=== PATIENT | female | born 1960 | race Caucasian/White ===

== ENCOUNTER 2018-04-03 16:47 | Outpatient (CLI) | payer OTHER, SELFPAY ==
[2018-04-03 20:35] LABS: ALT 43 U/L (12-78); AST 26 U/L (15-37); Albumin 3.9 g/dL (3.4-5.0); Alkaline Phosphatase 93 U/L (46-116); Anion Gap 8.7 mmol/L (3-11); BUN 17 mg/dL (7-18); Bilirubin, Total 0.6 mg/dL (0.2-1.0); CO2 29.3 mmol/L (21.0-32.0); CREATININE 1.11 mg/dL (0.55-1.02); Calcium 9.6 mg/dL (8.5-10.1); Chloride 102 mmol/L (98-107); Estimated GFR 50.14 (mL/min/1.73m2); Glucose 91 mg/dL (70-100); Sodium 140 mmol/L (136-145); TSH (W/Ref FT4) 0.12 uIU/mL (0.358-3.74); Total Protein 7.4 g/dL (6.4-8.2)
[2018-04-03 21:10] LABS: FREE T4 1.52 ng/dL (0.76-1.46)
== END 2018-04-03 17:07 ==
PROVIDERS: PCP Family Medicine; Visit Provider Family Medicine
DX: E03.9 Hypothyroidism, unspecified (principal)
CPT/HCPCS: 36415; 80053; 84439; 84443

== ENCOUNTER 2018-06-06 15:21 | Outpatient (CLI) | payer OTHER, SELFPAY ==
[2018-06-06 15:48] LABS: Abs Immature Grans 0.01 k/cumm (0.0-0.09); Absolute Basophil Count 0.02 k/cumm (0.0-0.2); Absolute Eosinophil Count 0.12 k/cumm (0.0-0.7); Absolute Lymphocyte Count 1.57 k/cumm (1.2-3.4); Absolute Monocyte Count 0.49 k/cumm (0.11-0.7); Absolute Neutrophil Count 3.97 k/cumm (1.2-6.7); Basophils % 0.3; Eosinophils % 1.9; HCT 38.5 % (36.0-46.0); HGB 12.8 g/dL (12.0-15.5); Immature Grans % 0.2; Lymphocytes % 25.4; Mean Corp. HGB Concentration 33.2 g/dL (32.0-36.0); Mean Corpuscular Hemoglobin 28.5 pg (27.0-33.0); Mean Corpuscular Volume 85.7 fL (80-95); Mean Platelet Volume 9.1 fL (8.0-11.0); Monocytes % 7.9; Neutrophils % 64.3; Platelet Count 248 x1000/uL (130-400); RBC 4.49 m/cumm (4.00-5.20); RBC Distribution Width 12.9 % (11.7-14.6); White Blood Cell Count 6.18 k/cumm (4.4-10.8)
[2018-06-06 17:54] LABS: ALT 33 U/L (12-78); AST 26 U/L (15-37); Albumin 3.7 g/dL (3.4-5.0); Alkaline Phosphatase 101 U/L (46-116); Anion Gap 7.7 mmol/L (3-11); BUN 17 mg/dL (7-18); Bilirubin, Total 0.6 mg/dL (0.2-1.0); CO2 29.3 mmol/L (21.0-32.0); CREATININE 1.17 mg/dL (0.55-1.02); Calcium 9.6 mg/dL (8.5-10.1); Chloride 102 mmol/L (98-107); Estimated GFR 47.18 (mL/min/1.73m2); Glucose 93 mg/dL (70-100); Potassium 3.9 mmol/L (3.5-5.1); Sodium 139 mmol/L (136-145); TSH (W/Ref FT4) 0.47 uIU/mL (0.358-3.74); Total Protein 7.3 g/dL (6.4-8.2)
== END 2018-06-06 15:41 ==
PROVIDERS: PCP Family Medicine
DX: C20 Malignant neoplasm of rectum (principal); E03.9 Hypothyroidism, unspecified; R10.9 Unspecified abdominal pain
CPT/HCPCS: 36415; 80053; 84443; 85025

== ENCOUNTER 2019-06-20 02:42 | Outpatient (CLI) | payer OTHER, SELFPAY ==
--- NOTE | 2019-06-20 10:30 | DI.MAMMO_ITS ---
EXAM: MAMMO SCREENING CLINICAL HISTORY: screening TECHNIQUE: Mammograms were interpreted according to the usual protocol including computer analysis w [employer] CAD system, tomosynthesis and C-view imaging. COMPARISON: 2009 through 2016 FINDINGS: The breasts are composed of scattered fibroglandular densities, Breast Density category B. No suspicious masses or suspicious microcalcifications are seen. No skin thickening or abnormal axillary lymph nodes are seen. There has been no significant change from prior exams. IMPRESSION: BIRADS Category 1, negative mammogram. Yearly screening mammography is recommended.
[2019-06-20 11:14] LABS: ALT 16 U/L (14-59); AST 12 U/L (15-37); Albumin 3.5 g/dL (3.4-5.0); Alkaline Phosphatase 97 U/L (46-116); Anion Gap 9.6 mmol/L (3-11); BUN 23 mg/dL (7-18); Bilirubin, Total 0.6 mg/dL (0.2-1.0); CO2 29.4 mmol/L (21.0-32.0); CREATININE 1.22 mg/dL (0.55-1.02); Calcium 9.1 mg/dL (8.5-10.1); Calculated LDL 106 mg/dL (<100); Chloride 103 mmol/L (98-107); Cholesterol 221 mg/dL (<200); Estimated GFR 44.81 (mL/min/1.73m2); Glucose 96 mg/dL (74-106); HDL Cholesterol 66 mg/dL (40-60); Potassium 3.6 mmol/L (3.5-5.1); Sodium 142 mmol/L (136-145); TSH (W/Ref FT4) 0.43 uIU/mL (0.36-3.74); Total Protein 6.8 g/dL (6.4-8.2); Triglyceride 249 mg/dL (<150)
== END 2019-06-20 03:02 ==
PROVIDERS: PCP Family Medicine; Visit Provider Family Medicine
DX: Z00.00 Encounter for general adult medical examination without abnormal findings (principal); Z12.31 Encounter for screening mammogram for malignant neoplasm of breast; E03.9 Hypothyroidism, unspecified; R05 Cough
CPT/HCPCS: 36415; 77063; 77067; 80053; 80061; 84443

== ENCOUNTER 2020-09-03 02:17 | Outpatient (CLI) | payer OTHER, SELFPAY ==
[2020-09-03 08:53] LABS: ALT 31 U/L (14-59); AST 20 U/L (15-37); Albumin 3.6 g/dL (3.4-5.0); Alkaline Phosphatase 84 U/L (46-116); Anion Gap 6.6 mmol/L (3-11); BUN 19 mg/dL (7-18); Bilirubin, Total 0.6 mg/dL (0.2-1.0); CO2 29.4 mmol/L (21.0-32.0); CREATININE 1.2 mg/dL (0.55-1.02); Calcium 8.8 mg/dL (8.5-10.1); Calculated LDL 115 mg/dL (<100); Chloride 105 mmol/L (98-107); Cholesterol 195 mg/dL (<200); Estimated GFR 45.52 (mL/min/1.73m2); Glucose 94 mg/dL (74-106); HDL Cholesterol 55 mg/dL (40-60); Potassium 4.4 mmol/L (3.5-5.1); Sodium 141 mmol/L (136-145); TSH (W/Ref FT4) 0.34 uIU/mL (0.36-3.74); Total Protein 6.9 g/dL (6.4-8.2); Triglyceride 128 mg/dL (<150)
[2020-09-03 09:09] LABS: FREE T4 1.31 ng/dL (0.76-1.46)
== END 2020-09-03 02:18 | disposition home or self-care (01) ==
LOC: LBO 02:17
PROVIDERS: PCP Family Medicine; Visit Provider Family Medicine
DX: Z00.00 Encounter for general adult medical examination without abnormal findings (principal); Z13.220 Encounter for screening for lipoid disorders; Z13.29 Encounter for screening for other suspected endocrine disorder
CPT/HCPCS: 36415; 80053; 80061; 84439; 84443

== ENCOUNTER 2020-09-08 14:43 | Outpatient (REF) | payer OTHER, SELFPAY ==
--- NOTE | 2020-09-08 13:15 | PAPFT_PTH ---
PATIENT: Crista Fontenot LOC: [facility] U#:[id number] AGE/SX: 60/F ROOM: RE09/08/[address]: Renea King MD, DC : 1960 BED: DIS: 09/08/2020 SPEC #: [id number] RECD: 09/09/20 12:55 STATUS: GAURAV REHedy #: [id number] JOSE MIGUEL: 09/08/20 13:[address]: Renea King DEPT: FORMERLY [facility], [facility]–1983 Cytology RECD BY: Silvia Perkins Tissues: 1 - CX/ENDOCX FOR PAP SMEARS Procedures: PAP THIN PREP/UVM Screening HPV DNA PROBE Comments: [id number]
--- OUTSIDE RECORDS SUMMARY | 2020-09-08 14:49 | XMS_ITS | Continuity of Care Document ---
:1960 Author Organization [facility] Address [address] [place] [address] Care Team Providers Name Role Phone Joanna King Primary Care Physician Unavailable Anamaria Miller Attending Physician Unavailable Allergies, Adverse Reactions, Alerts Allergen Type Severity Reaction Last Updated Verified Status latex Allergy rash January 16 Active 2016 levothyroxine Allergy face swelling January 16 Active 2017 Sulfa (Sulfonamide Allergy rash January 16 Active Antibiotics) 2017 Medications Active Medications Medication Dose Units Route Sig Start Date Status Aspirin 81 MG ORAL DAILY January 16, 2017 A ctive Calcium Carbonate [Calcium 600] 1 TAB ORAL DAILY January 16, 2017 Active Levothyroxine [Synthroid] 112 MCG ORAL DAILY Dec Active Cholecalciferol (Vitamin D3) 5000 UNITS ORAL DAILY S epte2016 Active [Vitamin D3] Problem List No problem information available. Procedures Procedure Date Status Sacrum and Coccyx 2 vw Min June 14, [address] Chest Abd Pel w/ Contrast January 26, 2017 completed COLONOSCOPY AND BIOPSY January 16, 2017 active US Abdomen (Limited) December 28, 2016 completed Relevant Diagnostic Tests and/or Laboratory Data Laboratory Results Test Date/Time Result Interp. Ref. Range Result Comment White Blood Count January 19, 7.47 4.8-10.8 2016 5:54pm 1000/mm3 Red Blood Count January 19, 4.56 M/mm3 4.20-5.40 2016 5:54pm Hemoglobin January 19, 13.0 g/dL 12.0-16.0 2016 5:54pm Hematocrit January 19, 38.9 % 37-47 2017 5:54pm Mean Corpuscular January 19, 85.3 fL 81.0-99.0 Volume 2017 5:54pm Mean Corpuscular January 19, 28.5 pg 27-31 Hemoglobin 2017 5:54pm Mean Corpuscular January 19, 33.4 g/dL 33-37 Hemoglobin Concent 2017 5:54pm Red Cell Distribution January 19, 13.1 % 11.5-14.5 Width 2017 5:54pm Platelet Count January 19, 316 089-238 3989 5:54pm 1000/mm3 Mean Platelet Volume January 19, 9.2 fL 7.4-10.4 2017 5:54pm Sodium Level January 19, 138 mmol/L 899-554 1766 5:54pm Potassium Level January 19, 3.8 mmol/L 3.6-5.0 2016 5:54pm Chloride Level January 19, 101 mmol/L 98-107 2016 5:54pm Carbon Dioxide Level January 19, 24 mmol/L -2016 5:54pm Anion Gap January 19, 13 7-16 2016 5:54pm Blood Urea Nitrogen January 19, 14 mg/dL -2016 5:54pm Creatinine January 19, 1.0 mg/dL 0.52-1.04 2016 5:54pm Glomerular Filtration January 19, 57 mL/min Rate Calc 2016 5:54pm Glucose Level January 19, 97 mg/dL 70-100 2016 5:54pm Calcium Level January 19, 9.8 mg/dL 8.4-10.2 2016 5:54pm Calcium Adjusted for January 19, 9.8 mg/dL 8.4-10.2 Albumin 2016 5:54pm Total Bilirubin January 19, 0.8 mg/dL 0.2-1.3 2016 5:54pm Direct Bilirubin January 16, 0.0 mg/dL 0-0.3 2017 9:45am Aspartate Amino January 19, 24 U/L 14-36 Transf (AST/SGOT) 2016 5:54pm Alanine January 19, 33 U/L 9-52 Aminotransferase 2016 5:54pm (ALT/SGPT) Total Protein January 19, 7.3 g/dL 6.3-8.2 2016 5:54pm Albumin January 19, 4.3 g/dL 3.5-5.0 2017 5:54pm Alkaline Phosphatase January 19, 86 U/L 38-126 2016 5:54pm Carcinoembryonic January 16, 0.7 ng/mL % Di stribution of CEA (ng/ml) Antigen 2016 9:45am 0-2.5 in 98. 2% of non-smokers and 87.3% of smokers 2.6-5.0 in 1. 8% of non-smokers and 8.0% of smokers 5.1-10.1 in 4 .7% of smokers Serum CEA con centration should not be interpreted as absolute e vidence for the presence or absence of malignant disease. Assayed utili Pipedriveng App[employer]Rx (Traackr) chemiluminesc ent technology. Values obtained by u sing different assay methods cannot be use d interchangeably. Test Performed by: [place] [address] Licensed Clinical Social Worker: Jan Buckley MD , Ph D Advance Directives Advance Directive Response Recorded Date/Time Do we have a copy [place] file here [place] [facility] No S eptember 2016 8:48am Does patient have an Advanced Directive? Yes December 28, 2016 8:48am Pt has a Living Will? Yes December 28, 2016 8:48am Pt has a Power of Income Tax Investigator? Yes December 28, 2016 8:48am Chief Complaint and Reason for Visit Encounter Admit Date Chief Complaint Reason for Visit Departed Clinical June 14, 2017 4:48pm XR Hospital Discharge Instructions No known hospital discharge instructions. Hospital Discharge Medications Medication Dose Units Route Sig Qty Days Order Date Status In structions Aspirin 81 MG ORAL DAILY January 162016 Calcium Carbonate 1 TAB ORAL DAILY January 162016 Levothyroxine 112 MCG ORAL DAILY January 16, Act andrés 2016 Cholecalciferol 5000 UNITS ORAL DAILY January 16, A ctive (Vitamin D3) 2016 Encounters Encounter Facility Location Admit/Visit Discharge/Departure Atte nding Date Date Provider Departed [facility] June 14June 14, 2017 Ian prakash [facility] 2017 4:48pm 4:49pm Yuri [facility] January 26January 26, 2017 Chet [facility] 2016 8:37am 8:38am [facility] Laboratory January 19January 19, 2017 Felisa jhaveri [facility] 2016 5:48pm 5:49pm [facility] January 16January 16, 2017 Felisa jhaveri [facility] 2016 7:24am 10:15am [facility] December 28December 28, 2016 Franky moreno [facility] 2016 8:43am 8:44am [facility] Functional Status No known functional status. Immunizations No known immunizations. Payers Payer Policy Type Covered Covered Relationship Subscriber Subs criber Id Name Green Party Green Party Id [employer] Commercial JEREMIAS [id number] Spouse JEREMIAS PANG [id number] POLY SCOTT (DO Commercial JOEL [id number] Self/Same as JOEL [id number] NOT USE) POLY Patient POLY SELF PAY Personal Plan of Care No Known Plan of Care Information Social History Query Response Start Date Stop Date Smoking Status Never smoker Vital Signs Vital Reading Result Reference Range Collection Date/ Time Height n/a Weight n/a Temperature 98.8 F 97.6 F-99.6 F January 16 7:53am Pulse 67 BPM 60-100 January 16 10:14am Respiration 16 RPM -January 16 10:14am Pulse Oximetry 97 % 95-100 January 16 10:14am Blood Pressure Systolic 137 100-140 [facility] 2016 10:14am Blood Pressure Diastolic 77 50-85 [facility] 2016 10:14am Body Mass Index n/a
--- OUTSIDE RECORDS SUMMARY | 2020-09-08 14:49 | XMS_ITS | Continuity of Care Document ---
:1960 Author Organization [facility] Address [address] [place] [address] Care Team Providers Name Role Phone Joanna King Primary Care Physician Unavailable Ron Rosenberg Attending Physician Allergies, Adverse Reactions, Alerts Allergen Type Severity Reaction Last Updated Verified Status latex Allergy rash January 16 Active 2016 levothyroxine Allergy face swelling January 16 Active 2017 Sulfa (Sulfonamide Allergy rash January 16 Active Antibiotics) 2016 Medications Active Medications Medication Dose Units Route Sig Start Date Status Aspirin 81 mg ORAL DAILY January 16, 2017 A ctive Calcium Carbonate [Calcium 600] 1 tab ORAL DAILY January 16, 2017 Active Levothyroxine [Synthroid] 112 mcg ORAL DAILY Dec Active Cholecalciferol (Vitamin D3) 5000 units ORAL DAILY S epte2016 Active [Vitamin D3] Problem List No problem information available. Procedures Procedure Date Status Provider(s) Colonoscopy with biopsy January 16, 2017 completed Apolinar Rosenberg US Abdomen (Limited) December 28, 2016 completed Relevant Diagnostic Tests and/or Laboratory Data Laboratory Results Test Date/Time Result Interp. Ref. Range Result Comment Total Bilirubin January 16, 1.0 mg/dL 0.2-1.3 2016 9:45am Direct Bilirubin January 16, 0.0 mg/dL 0-0.3 2016 9:45am Aspartate Amino Transf January 16 U/L 14-36 (AST/SGOT) 2016 9:45am Alanine Aminotransferase January 16 36 U/L 9-52 (ALT/SGPT) 2016 9:45am Total Protein January 16, 6.5 g/dL 6.3-8.2 2016 9:45am Albumin January 16, 3.9 g/dL 3.5-5.0 2016 9:45am Alkaline Phosphatase January 16 83 U/L 38-126 2016 9:45am Advance Directives Advance Directive Response Recorded Date/Time Do we have a copy on file here [facility] 8[facility] Does patient have an Advanced Directive? Yes December 28, 2016 8:48am Pt has a Living Will? Yes December 28, 2016 8:48am Pt has a Power of Carbon Sequestration Plant Engineer? Yes December 28, 2016 8:48am Chief Complaint and Reason for Visit Encounter Admit Date Chief Complaint Reason for Visit Departed Surgical Day January 16, 2017 Other fecal abnormaliti es Care 7:24am Hospital Discharge Instructions No known hospital discharge instructions. Hospital Discharge Medications Medication Dose Units Route Sig Qty Days Order Date Status In structions Aspirin 81 mg ORAL DAILY January 162016 Calcium Carbonate 1 tab ORAL DAILY January 162016 Levothyroxine 112 mcg ORAL DAILY January 16 Act andrés 2016 Cholecalciferol 5000 units ORAL DAILY January 16, ctive (Vitamin D3) 2016 Encounters Encounter Facility Location Admit/Visit Discharge/Departure Atte nding Date Date Provider Departed [facility] January 16, January 16, 2017 Felisa jhaveri, Surgical [facility] 2017 7:24am 10:15am Apolinar Care Departed [facility] December 28, December 28, [facility] 8[facility] Functional Status No known functional status. Immunizations No known immunizations. Payers Payer Policy Type Covered Covered Relationship Subscriber Subs criber Id Name Alliance Party Alliance Party Id [employer] Commercial JEREMIAS [id number] Spouse JEREMIAS PANG [id number] POLY CIGPEGGY (DO Commercial JOEL [id number] Self/Same as JOEL [id number] NOT USE) POLY Patient POLY SELF PAY [...] 16 10:14am Blood Pressure Systolic 137 100-140 [facility] 10:14am Blood Pressure Diastolic 77 50-85 [facility] 2016 10:14am Body Mass Index n/a
--- OUTSIDE RECORDS SUMMARY | 2020-09-08 14:49 | XMS_ITS | Continuity of Care Document ---
:1960 Author Organization [facility] Address [address] [place] [address] Care Team Providers Name Role Phone Joanna King Primary Care Physician Unavailable Ron Rosenberg Attending Physician Allergies, Adverse Reactions, Alerts Allergen Type Severity Reaction Last Updated Verified Status latex Allergy rash January 16 Active 2017 levothyroxine Allergy face swelling January 16 Active [...] problem information available. Procedures Procedure Date Status CT Chest Abd Pel w/ Contrast January [...] 5:54pm Hemoglobin January 19, 13.0 g/dL 12.0-16.0 2017 5:54pm Hematocrit January 19, 38.9 % 37-47 2016 5:54pm Mean Corpuscular January 19, 85.3 fL 81.0-99.0 Volume 2017 5:54pm Mean Corpuscular January 19, 28.5 pg 27-31 Hemoglobin 2017 5:54pm Mean Corpuscular January 19, 33.4 g/dL 33-37 Hemoglobin Concent 2017 5:54pm Red Cell Distribution January 19, 13.1 % 11.5-14.5 Width 2017 5:54pm Platelet Count January 19, 316 140-868 4075 5:54pm 1000/mm3 Mean Platelet Volume January 19, 9.2 fL 7.4-10.4 2016 5:54pm Sodium Level January 19, 138 mmol/L 087-334 5943 5:54pm Potassium Level January 19, 3.8 mmol/L 3.6-5.0 2017 5:54pm Chloride Level January 19, 101 mmol/L 98-107 2016 5:54pm Carbon Dioxide Level January 19, 24 mmol/L -2016 5:54pm Anion Gap January 19, 13 7-16 2016 5:54pm Blood Urea Nitrogen January 19, 14 mg/dL 7-2016 5:54pm Creatinine January 19, 1.0 mg/dL 0.52-1.04 2016 5:54pm Glomerular Filtration January 19, 57 mL/min Rate Calc 2017 5:54pm Glucose Level January 19, 97 mg/dL 70-100 2016 5:54pm Calcium Level January 19, 9.8 mg/dL 8.4-10.2 2016 5:54pm Calcium Adjusted for January 19, 9.8 mg/dL 8.4-10.2 Albumin 2016 5:54pm Total Bilirubin January 19, 0.8 mg/dL 0.2-1.3 2016 5:54pm Direct Bilirubin January 16, 0.0 mg/dL 0-0.3 2016 9:45am Aspartate Amino January 19, 24 U/L [...] or absence of malignant disease. Assayed utili zing Wear [employer] T[employer] (g2One) chemiluminesc ent technology. Values obtained by u sing different assay methods cannot be use d interchangeably. Test Performed by: [place] [address] Head Start Coordinator: Jan Buckley MD , Ph D Advance Directives Advance Directive Response Recorded Date/Time Do we have a copy on file here at [facility] [place] [place]? No S eptember 2016 8:48am Does patient have an Advanced Directive? Yes December 28, 2016 8:48am Pt has a Living Will? Yes December 28, 2016 8:48am Pt has a Power of Neon Sign Worker? Yes December 28, 2016 8:48am Chief Complaint and Reason for Visit Encounter Admit Date Chief Complaint Reason for Visit Departed Clinical January 26, 2017 8:37am EVALUATION OF RECTAL MA SS Hospital Discharge Instructions No known hospital discharge instructions. Hospital Discharge Medications Medication Dose Units Route Sig Qty Days Order Date Status In structions Aspirin 81 mg ORAL DAILY January 162016 Calcium Carbonate 1 tab ORAL DAILY January 162016 Levothyroxine 112 mcg ORAL DAILY January 16, Act andrés 2016 Cholecalciferol 5000 units ORAL DAILY January 16, ctive (Vitamin D3) 2016 Encounters Encounter Facility Location Admit/Visit Discharge/Departure Atte nding Date Date Provider Departed [facility] January 26January 26, 2017 Chet [facility] 2016 8:37am 8:38am [facility] January 19January 19, 2017 Felisa jhaveri [facility] 2016 5:48pm 5:49pm [facility] January 16January 16, 2017 Felisa jhaveri [facility] 2017 7:24am 10:15am [facility] December 28December 28, 2016 [facility] 8:43am 8:44am [facility] Functional Status No known functional status. Immunizations No known immunizations. Payers Payer Policy Type Covered Covered Relationship Subscriber Subs criber Id Name Green Party Green Party Id [employer] Commercial JEREMIAS [id number] Spouse JEREMIAS PANG [id number] POLY CIGPEGGY (DO Commercial JOEL [id number] Self/Same as JOEL [id number] NOT USE) POLY Patient POLY SELF PAY [...] 16 10:14am Blood Pressure Systolic 137 100-140 [facility] 2016 10:14am Blood Pressure Diastolic 77 50-85 [facility] 2016 10:14am Body Mass Index n/a
--- OUTSIDE RECORDS SUMMARY | 2020-09-08 14:49 | XMS_ITS | Continuity of Care Document ---
:[address] [facility] Address [address] [place] [address] Care Team Providers Name Role Phone Joanna King Primary Care Physician Unavailable Joanna King Attending Physician Unavailable Allergies, Adverse Reactions, Alerts Allergen Type Severity Reaction Last Updated Verified Status MDX Latex Allergy Unknown rash August 02, 2012 Y Activ e MDX Levothyroxine Allergy Unknown unknown August 02, 2012 Y Active MDX SULFA (sulfonamide) Allergy Unknown rash August 02, 2012 Y Active Medications Active Medications Medication Dose Units Route Sig Qty Start Date Status Aspirin 325 mg ORAL DAILY August 05, 2011 Active Levothyroxine Sodium 125 mcg ORAL EVERY MORNING August 05, 2011 Active [Levothyroxine 25 mcg] Ergocalciferol (Vitamin 58256 units ORAL RODRIGEZ July 27, 2012 Active D2) Cholecalciferol (Vitamin 1000 IU ORAL EVERY MORNING A pri2012 Active D3) Calcium 600 mg ORAL EVERY MORNING July 27, 2012 Acti ve Oxycodone-Acetaminophen 1 - 2 tab ORAL Q4H PRN For Pain August 02, 2012 Active Problem List No problem information available. Procedures Procedure Date Status US Abdomen (Limited) December 28, 2016 completed Relevant Diagnostic Tests and/or Laboratory Data No known relevant diagnostic tests, laboratory data, and/or discharge summary. Advance Directives Advance Directive Response Recorded Date/Time Do we [place] [facility] 2016 8:48am Does patient have an Advanced Directive? Yes December 28, 2016 8:48am Pt has a Living Will? Yes December 28, 2016 8:48am Pt has a Power of Cleaning Manager? Yes December 28, 2016 8:48am Chief Complaint and Reason for Visit Encounter Admit Date Chief Complaint Reason for Visit Departed Clinical December 28, 2016 8:43am RUQ PAIN, BLOATING Hospital Discharge Instructions No known hospital discharge instructions. Hospital Discharge Medications Medication Dose Units Route Sig Qty Days Order Status Instru ctions Date Aspirin 325 mg ORAL DAILY July Active 2011 Levothyroxine 125 mcg ORAL EVERY July Active Sodium MORNING 2011 Ergocalciferol 52037 units ORAL RODRIGEZ July 27 (Vitamin D2) 2012 Cholecalciferol 1000 IU ORAL EVERY July 27, Active (Vitamin D3) 2012 Calcium 600 mg ORAL EVERY July 27, MORNING 2012 Oxycodone-Acetamino 1 - 2 tab ORAL Q4H PRN For 16 August Active phen Pain 2012 Encounters Encounter Facility Location Admit/Visit Discharge/Departure Atte nding Date Date Provider Departed [facility] December 28December 28, [facility] 8:43am 8:44am [facility] Functional Status No known functional status. Immunizations No known immunizations. Payers Payer Policy Type Covered Covered Relationship Subscriber Subs criber Id Name Democrat Democrat Id [employer] Commercial JEREMIAS [id number] Spouse JEREMIAS PANG U12 [id number] POLY CIGPEGGY (DO Commercial JOEL [id number] Self/Same as JOEL [id number] NOT USE) POLY Patient POLY SELF PAY Personal Plan of Care No Known Plan of Care Information Social History No known social history. Vital Signs No known vital signs results.
--- OUTSIDE RECORDS SUMMARY | 2020-09-08 14:50 | XMS_ITS | Continuity of Care Document ---
:1960 Author Organization [facility] Address [address] [place] [address] Care Team Providers Name Role Phone Joanna King Primary Care Physician Unavailable Allergies, Adverse Reactions, Alerts Allergen Type Severity Reaction Last Updated Verified Status latex Adverse Reaction Mild Urticaria August 22, 2018 Y A ctive levothyroxine sodium Adverse Reaction Unknown August 22, 2018 Y Active Sulfa (Sulfonamide Adverse Reaction Unknown August 22, 2018 Y Active Antibiotics) Medications Active Medications Medication Dose Units Route Sig Start Date Status Aspirin 81 MG ORAL DAILY January 16, 2017 A ctive Calcium Carbonate [Calcium 600] 1 TAB ORAL DAILY January 16, 2017 Active Levothyroxine [Synthroid] 112 MCG ORAL DAILY Dec Active Cholecalciferol (Vitamin D3) 5000 UNITS ORAL DAILY S ep2016 Active [Vitamin D3] Escitalopram Oxalate MG August 22 Active Problem List Active Problems Medical Problem Onset Date Status Acute frontal sinusitis November 15, 2012 Viral URI Active Procedures No known history of procedures. Relevant Diagnostic Tests and/or Laboratory Data No known relevant diagnostic tests, laboratory data, and/or discharge summary. Hospital Discharge Instructions Additional Discharge Instructions Drink plenty of flui ds you can take Robitussin for coughing. Take Tylenol ibup rofen for fever or chills. If your symptoms wo rsen such as high fever productive cough chest pain or shortness of breath you should be rechecked. Instruction/Education Provided Viral Upper Respiratory Infection, Adult (DC) Hospital Discharge Medications Medication Dose Units Route Sig Qty Days Order Date Status In structions Aspirin 81 MG ORAL DAILY January 162016 Calcium Carbonate 1 TAB ORAL DAILY January 16, 2016 Levothyroxine 112 MCG ORAL DAILY January 16, andrés 2016 Cholecalciferol 5000 UNITS ORAL DAILY January 16, ctive (Vitamin D3) 2016 Escitalopram Oxalate MG August 22 9 Active Encounters Encounter Facility Location Admit/Visit Discharge/Departure Atte nding Date Date Provider Departed [facility] August 22, 2018 August 22, 2018 11:30am [facility] 11:11am Functional Status No known functional status. Immunizations No known immunizations. Payers Payer Policy Type Covered Covered Relationship Subscriber Subs criber Id Name Alliance Party Alliance Party Id CIG[employer] Commercial JEREMIAS [id number] Spouse JEREMIAS PANG [id number] POLY SCOTT (DO Commercial JOEL [id number] Self/Same as JOEL [id number] NOT USE) POLY Patient POLY SELF PAY Personal Plan of Care Instructions Viral Upper Respiratory Infection, Adult (DC) Social History No known social history. Vital Signs Vital Reading Result Reference Range Collection Date/ Time Height 5 ft 6 in August 22, 2018 11:1 7am Weight 89.811 kg August 22, 2018 11:1 7am Temperature 98 F 97.6 F-99.6 F August 22, 2018 11:1 7am Pulse 65 BPM 60-100 August 22, 2018 11:1 7am Respiration 18 RPM 12-24 August 22, 2018 11:1 7am Pulse Oximetry 99 % 95-100 August 22, 2018 11:1 7am Blood Pressure Systolic 123 100-140 August 22 019 11:17am Blood Pressure Diastolic 85 50-85 August 22, 2018 11:17am Body Mass Index n/a
--- OUTSIDE RECORDS SUMMARY | 2020-09-08 14:50 | XMS_ITS | Continuity of Care Document ---
:1960 Author Organization [facility] Address [address] [place] [address] Care Team Providers Name Role Phone Joanna [...] problem information available. Procedures Procedure Date Status COLONOSCOPY AND BIOPSY January 16, 2017 active [...] Corpuscular January 19, 85.3 fL 81.0-99.0 Volume 2016 5:54pm Mean Corpuscular January 19, 28.5 pg 27-31 Hemoglobin 2017 5:54pm Mean Corpuscular January 19, 33.4 g/dL 33-37 Hemoglobin Concent 2016 5:54pm Red Cell Distribution January 19, 13.1 % 11.5-14.5 Width 2017 5:54pm Platelet Count January 19, 316 021-804 1101 5:54pm 1000/mm3 Mean Platelet Volume January 19, 9.2 fL 7.4-10.4 2016 5:54pm Sodium Level January 19, 138 mmol/L 625-051 2310 5:54pm Potassium Level January 19, 3.8 mmol/L 3.6-5.0 2017 5:54pm Chloride Level January 19, 101 mmol/L 98-107 2017 5:54pm Carbon Dioxide Level January 19, 24 mmol/L -2016 5:54pm Anion Gap January 19, 13 7-16 2016 5:54pm Blood Urea Nitrogen January 19, 14 mg/dL 7-17 2016 5:54pm Creatinine January 19, 1.0 mg/dL 0.52-1.04 [...] Alanine January 19, 33 U/L 9-52 Aminotransferase 2017 5:54pm (ALT/SGPT) Total Protein January 19, 7.3 g/dL 6.3-8.2 2016 5:54pm Albumin January 19, 4.3 g/dL 3.5-5.0 2016 5:54pm Alkaline Phosphatase January 19, 86 U/L [...] absence of malignant disease. Assayed utili zing [employer] ([employer]) chemiluminesc ent technology. Values obtained by u sing different assay methods cannot be use d interchangeably. Test Performed by: [place] [address] Supervisor Shuttle Preparation: Jan Buckley MD , Ph D Advance Directives Advance Directive Response Recorded Date/Time Do we have a copy on file here at [facility]? No S eptember 2016 8:48am Does patient have an Advanced Directive? Yes December 28, 2016 8:48am Pt has a Living Will? Yes December 28, 2016 8:48am Pt has a Power of Mechanical Maintenance Engineer? Yes December 28, 2016 8:48am Chief Complaint and Reason for Visit Encounter Admit Date Chief Complaint Reason for Visit Departed Clinical January 19, 2017 5:48pm Lab Hospital Discharge Instructions No known hospital discharge instructions. Hospital Discharge Medications Medication Dose Units Route Sig Qty Days Order Date Status In structions Aspirin 81 mg ORAL DAILY January 162016 Calcium Carbonate 1 tab ORAL DAILY January 162016 Levothyroxine 112 mcg ORAL DAILY January 16, Act andrés 2017 Cholecalciferol 5000 units ORAL DAILY January 16, A ctive (Vitamin D3) 2016 Encounters Encounter Facility Location Admit/Visit Discharge/Departure Atte nding Date Date Provider Departed [facility] January 19January 19, 2017 Felisa jhaveri [facility] 2016 5:48pm 5:49pm [facility]January 16, 2017 Felisa jhaveri [facility] 2017 7:24am 10:15am [facility] Departed [facility] December 28December 28, 2016 Franky moreno [facility] 2016 8:43am 8:44am [facility] Functional Status No known functional status. Immunizations No known immunizations. Payers Payer Policy Type Covered Covered Relationship Subscriber Subs criber Id Name Constitution Party Constitution Party Id [employer] Commercial JEREMIAS [id number] Spouse JEREMIAS PANG [id number] POLY SCOTT (DO Commercial JOEL [id number] Self/Same as JOEL [id number] NOT USE) POLY Patient POLY SELF PAY [...] 16 10:14am Blood Pressure Systolic 137 100-140 [facility] 2016 10:14am Blood Pressure Diastolic 77 50-85 [facility] 2016 10:14am Body Mass Index n/a
--- OUTSIDE RECORDS SUMMARY | 2020-09-08 14:50 | XMS_ITS | Continuity of Care Document ---
:1960 Author Organization [facility] Address [address] [place] [address] Allergies, Adverse Reactions, Alerts Allergen Type Severity [...] (Vitamin D3) 5000 UNITS ORAL DAILY S 2016 Active [Vitamin D3] Escitalopram Oxalate MG August 22 Active Problem List Active Problems Medical Problem Onset Date Status Acute frontal sinusitis November 15, 2012 Inactive/Resolved Problems Medical Problem Onset Date Status Viral URI Inactive Procedures No known history of procedures. Relevant Diagnostic Tests and/or Laboratory Data No known relevant diagnostic tests, laboratory data, and/or discharge summary. Hospital Discharge Instructions No known hospital discharge instructions. Hospital Discharge Medications Medication Dose Units Route Sig Qty Days Order Date Status In structions Aspirin 81 MG ORAL DAILY January 162016 Calcium Carbonate 1 TAB ORAL DAILY January 162016 Levothyroxine 112 MCG ORAL DAILY January 16 andrés 2016 Cholecalciferol 5000 UNITS ORAL DAILY January 16, ctive (Vitamin D3) 2016 Escitalopram Oxalate MG August 22 9 Active Functional Status No known functional status. Immunizations No known immunizations. Payers Payer Policy Type Covered Covered Relationship Subscriber Subs criber Id Name Alliance Party Alliance Party Id [employer] Commercial JEREMIAS [id number] Spouse JEREMIAS PANG [id number] POLY SCOTT ([place] Commercial JOEL [id number] Self/Same as JOEL [id number] NOT USE) POLY Patient POLY SELF PAY Personal Plan of Care No Known Plan of Care Information Social History No known social history. Vital Signs No known vital signs results.
== END 2020-09-08 14:44 | disposition home or self-care (01) ==
LOC: LBN 14:43
PROVIDERS: PCP Family Medicine; Visit Provider Family Medicine
DX: Z12.4 Encounter for screening for malignant neoplasm of cervix (principal); Z11.51 Encounter for screening for human papillomavirus (HPV)
CPT/HCPCS: 88142; 87624

== ENCOUNTER 2020-09-17 01:36 | Outpatient (CLI) | payer OTHER, SELFPAY ==
--- NOTE | 2020-09-17 06:30 | DI.MAMMO_ITS ---
Exam(s) MAMMO SCREENING EXAM: MAMMO SCREENING CLINICAL HISTORY: screening,z12.39. TECHNIQUE: Bilateral full field digital CC and MLO mammographic images were obtained with 3D tomosyn thesis and utilizing computer aided detection (CAD). COMPARISON: Prior mammograms dating back to 2010, the most recent being May 2019. FINDINGS: Small benign-appearing nodule in the left breast seen on 3D imaging is unchanged from prior studies. There are no new spiculated masses nor malignant appearing microcalcification groups. There is no significant architectural distortion nor skin thickening-retraction. IMPRESSION: Stable benign findings. No radiographic evidence of malignancy. BI-RADS Category 2 - Benign Findings Breast Density - Category B - Scattered areas of fibroglandular density Breast density Category C or D implies that the patient has dense breast tissue. Dense breast tissue can make it harder to find cancer on a mammogram. Dense breast tissue is also associated with an incr eased risk of breast cancer. This information about the result of the mammogram report was provided to the patient to raise their awareness. Use this report when you speak with the patient about their risks for breast cancer, which includes their family history. At that time, you may recommend additional screening tests (Ultrasoun d or MRI) as these tests may add significant information. A negative radiographic report should not delay biopsy if a dominant or clinically suspicious mass is present. Up to ten percent of cancers are not identified on mammography. A negative report may reinforce clinical impression. Adenosis and dense breasts may obscure an underlying neoplasm. False positive reports average 6 to 10%. Patient will receive a letter notifying them of these results.
== END 2020-09-17 01:56 ==
PROVIDERS: PCP Family Medicine; Visit Provider Family Medicine
DX: Z12.31 Encounter for screening mammogram for malignant neoplasm of breast (principal)
CPT/HCPCS: 77063; 77067

== ENCOUNTER 2021-03-03 02:33 | Outpatient (CLI) | payer OTHER, SELFPAY ==
[2021-03-03 08:14] LABS: Hemoglobin A1C 5.6 % (<5.7)
[2021-03-03 09:07] LABS: Albumin 3.7 g/dL (3.4-5.0); Alkaline Phosphatase 90 U/L (46-116); BUN 19 mg/dL (7-18); Bilirubin, Total 0.8 mg/dL (0.2-1.0); CREATININE 1.2 mg/dL (0.55-1.02); Calcium 9.3 mg/dL (8.5-10.1); Estimated GFR 45.37 (mL/min/1.73m2); Glucose 99 mg/dL (74-106); Sodium 141 mmol/L (136-145); Total Protein 7.1 g/dL (6.4-8.2)
[2021-03-03 09:08] LABS: ALT 43 U/L (14-59); AST 29 U/L (15-37); Chloride 104 mmol/L (98-107); Potassium 4.3 mmol/L (3.5-5.1); TSH (W/Ref FT4) 0.64 uIU/mL (0.36-3.74)
== END 2021-03-03 02:34 | disposition home or self-care (01) ==
LOC: LBO 02:33
PROVIDERS: PCP Family Medicine; Visit Provider Family Medicine
DX: Z00.00 Encounter for general adult medical examination without abnormal findings (principal); E03.9 Hypothyroidism, unspecified; E11.9 Type 2 diabetes mellitus without complications
CPT/HCPCS: 36415; 80053; 83036; 84443

== ENCOUNTER 2021-12-28 02:30 | Outpatient (CLI) | payer OTHER, SELFPAY ==
[2021-12-28 12:17] LABS: HCT 36.9 % (36.0-46.0); HGB 12.5 g/dL (11.2-15.7); MCH 29.6 pg (27.0-33.0); MCHC 33.9 % (32.0-36.0); MCV 87 fL (80-95); MPV 9.7 fL (8.0-11.0); Platelet Count 309 10^3/uL (130-400); RBC 4.23 10^6/uL (3.93-5.22); RDW 12.7 % (11.7-14.6); WBC 7.71 10^3/uL (4.4-10.8)
[2021-12-28 13:02] LABS: ALT 34 U/L (14-59); AST 22 U/L (15-37); Albumin 3.6 g/dL (3.4-5.0); Alkaline Phosphatase 75 U/L (46-116); Anion Gap 6.9 mmol/L (3-11); BUN 17 mg/dL (7-18); Bilirubin, Total 0.8 mg/dL (0.2-1.0); CO2 27.1 mmol/L (21.0-32.0); CREATININE 1.1 mg/dL (0.55-1.02); Calcium 8.9 mg/dL (8.5-10.1); Chloride 105 mmol/L (98-107); Estimated GFR 56.46 (mL/min/1.73m2); Glucose 97 mg/dL (74-106); Potassium 3.8 mmol/L (3.5-5.1); Sodium 139 mmol/L (136-145); TSH (W/Ref FT4) 1.92 uIU/mL (0.36-3.74); Total Protein 7.1 g/dL (6.4-8.2)
[2021-12-28 22:58] LABS: CEA 0.7 ng/mL (See Note)
== END 2021-12-28 02:31 | disposition home or self-care (01) ==
LOC: LOS 02:30
PROVIDERS: PCP Family Medicine; Visit Provider Family Medicine
DX: C20 Malignant neoplasm of rectum (principal); Z00.00 Encounter for general adult medical examination without abnormal findings; E03.9 Hypothyroidism, unspecified
CPT/HCPCS: 36415; 80053; 85027; 82378; 84443

== ENCOUNTER → 2022-01-14 00:11 | Outpatient (CLI) | payer OTHER, SELFPAY ==
--- NOTE | 2022-01-14 08:10 | DI.MAMMO_ITS ---
Exam(s) MAMMO SCREENING EXAM: MAMMO SCREENING CLINICAL HISTORY: screening,Z12.39 TECHNIQUE: Mammograms were interpreted according to the usual protocol including computer analysis w [id number] CAD system, tomosynthesis and C-view imaging. COMPARISON: 2012 through 2020 FINDINGS: The breasts are composed of scattered fibroglandular densities, Breast Density category B. No suspicious masses or suspicious microcalcifications are seen. No skin thickening or abnormal axillary lymph nodes are seen. There has been no significant change from prior exams. IMPRESSION: BI-RADS Category 1, Negative mammogram Yearly screening mammography is recommended. Breast Density - Category B, scattered fibroglandular densities. A negative radiographic report should not delay biopsy if a dominant or clinically suspicious mass is present. Up to ten percent of cancers are not identified on mammography. A negative report may reinforce clinical impression. Adenosis and dense breasts may obscure an underlying neoplasm. False positive reports average 6 to 10%. Patient will receive a letter notifying them of these results.
== END ==
PROVIDERS: PCP Family Medicine; Visit Provider Family Medicine
DX: Z12.31 Encounter for screening mammogram for malignant neoplasm of breast (principal)
CPT/HCPCS: 77063; 77067

== ENCOUNTER 2023-01-24 01:54 | Outpatient (CLI) | payer OTHER, SELFPAY ==
[2023-01-24 18:34] LABS: ALT 32 U/L (14-59); AST 20 U/L (15-37); Albumin 3.6 g/dL (3.4-5.0); Alkaline Phosphatase 90 U/L (46-116); Anion Gap 10.1 mmol/L (3-11); BUN 16 mg/dL (7-18); CO2 25.9 mmol/L (21.0-32.0); CREATININE 1.2 mg/dL (0.55-1.02); Calcium 9.6 mg/dL (8.5-10.1); Calculated LDL 143 mg/dL (<100); Chloride 100 mmol/L (98-107); Cholesterol 221 mg/dL (<200); Estimated GFR 50.55 (mL/min/1.73m2); Glucose 92 mg/dL (74-106); HDL Cholesterol 55 mg/dL (40-60); Potassium 3.6 mmol/L (3.5-5.1); Sodium 136 mmol/L (136-145); TSH (W/Ref FT4) 1.31 uIU/mL (0.36-3.74); Total Protein 7.6 g/dL (6.4-8.2); Triglyceride 115 mg/dL (<150)
[2023-01-24 18:49] LABS: Bilirubin, Total 0.8 mg/dL (0.2-1.0)
== END 2023-01-24 01:55 | disposition home or self-care (01) ==
LOC: LBO 01:55
PROVIDERS: PCP Family Medicine; Visit Provider Family Medicine
DX: Z00.00 Encounter for general adult medical examination without abnormal findings (principal)
CPT/HCPCS: 36415; 80053; 80061; 84443

== ENCOUNTER → 2023-01-31 00:56 | Outpatient (CLI) | payer OTHER, SELFPAY ==
--- NOTE | 2023-01-31 07:45 | DI.RAD_ITS ---
Exam(s) XR FOOT LT COMPLETE XR ANKLE LT COMPLETE EXAM: XR FOOT LT COMPLETE and XR ankle LT complete CLINICAL HISTORY: twist and fall,W19.XXA. TECHNIQUE: 2D digital imaging was performed of the left ankle and foot. Six images were obtained. AP, oblique and lateral views were obtained. COMPARISON: CR XR ANKLE LT COMPLETE from 01/31/2023 FINDINGS: BONES: No acute fracture is present. No bony destructive lesion is seen. There is a spur at the poste rior calcaneus. There is a very tiny density adjacent to the medial malleolus which appears old. JOINTS: No dislocation present. SOFT TISSUE: Normal. IMPRESSION: No acute fracture or dislocation of the left foot or ankle. DATA REPOSITORY: RADIATION DOSE DELIVERED:
== END ==
PROVIDERS: PCP Family Medicine; Visit Provider Family Medicine
DX: W19.XXXA Unspecified fall, initial encounter (principal)
CPT/HCPCS: 73610; 73630

== ENCOUNTER 2023-02-10 01:28 | Outpatient (CLI) | payer OTHER, SELFPAY ==
--- NOTE | 2023-02-10 07:45 | DI.MAMMO_ITS ---
Exam(s) MAMMO SCREENING EXAM: MAMMO SCREENING CLINICAL HISTORY: screening,z12.39. TECHNIQUE: Bilateral full field digital CC and MLO mammographic images were obtained with 3D tomosyn thesis and utilizing computer aided detection (CAD). COMPARISON: Prior mammograms were reviewed. FINDINGS: In the right breast there is a nodular density which has appearance of probable benign lymph node but has increased in size from prior mammograms. This is located 8 cm in from the nipple on the CC view slightly lateral of center and measures 9 x 7 mm. Other asymmetric densities in the right breast ap pear unchanged. In the medial aspect of the left breast there is a lobulated nodular density on the CC view located 9 cm in from the nipple medial of center measuring 1.4 by 0.8 cm. Has appearance of a probable benign intramammary lymph node or conglomeration microcysts. Was not previously present. Spot compression view and ultrasound recommended There are no new spiculated masses nor malignant appearing microcalcification groups. There is no significant architectural distortion nor skin thickening-retraction. IMPRESSION: Bilateral nodules which require spot compression CC views and bilateral breast ultrasound. BI-RADS Category 0 - Assessment Incomplete: Need additional imaging evaluation Breast Density - Category B - Scattered areas of fibroglandular density Breast density Category C or D implies that the patient has dense breast tissue. Dense breast tissue can make it harder to find cancer on a mammogram. Dense breast tissue is also associated with an incr eased risk of breast cancer. This information about the result of the mammogram report was provided to the patient to raise their awareness. Use this report when you speak with the patient about their risks for breast cancer, which includes their family history. At that time, you may recommend additional screening tests (Ultrasoun d or MRI) as these tests may add significant information. A negative radiographic report should not delay biopsy if a dominant or clinically suspicious mass is present. Up to ten percent of cancers are not identified on mammography. A negative report may reinforce clinical impression. Adenosis and dense breasts may obscure an underlying neoplasm. False positive reports average 6 to 10%. Patient will receive a letter notifying them of these results.
== END 2023-02-10 01:48 ==
LOC: DI 01:28
PROVIDERS: PCP Family Medicine; Visit Provider Family Medicine
DX: Z12.31 Encounter for screening mammogram for malignant neoplasm of breast (principal)
CPT/HCPCS: 77063; 77067

== ENCOUNTER → 2023-02-17 00:50 | Outpatient (CLI) | payer OTHER, SELFPAY ==
--- NOTE | 2023-02-17 | DI.US_ITS ---
Exam(s) US BREAST RT LIMITED US BREAST LT LIMITED MG MAMMO SCREEN CALL BACK BI EXAM: MG MAMMO SCREEN CALL BACK BI CLINICAL HISTORY: F/U MAMMO, R92.8,RT NODULAR DENSITY,INCREASED IN SIZE,NEW LT NODULAR DESNIT. TECHNIQUE: Spot compression digital Mammography views of the bothbreasts with Tomosynthesis followe d by bilateral breast ultrasound. COMPARISON: MG Screening Bilat Mammo from 12/21/2015 MG Screening Bilat Mammo from 02/14/2017 MG MG MAMMO SCREENING from 06/20/2019 MG MG MAMMO SCREENING from 09/17/2020 MG MG MAMMO SCREENING from 01/14/2022 MG MG MAMMO SCREENING from 02/10/2023 US US BREAST RT LIMITED from 02/17/2023 US US BREAST LT LIMITED from 02/17/2023 FINDINGS: RIGHT BREAST: Mammography/Tomosynthesis: Masses/Architectural Distortion: Small posterolateral nodule is less apparent on the spot compression views. No suspicious features. Microcalcifictions: No suspicious pleomorphic-type are seen. Skin Thickening/Nipple Retraction: None. Right breast US: Echotexture: Normal appearance of the glandular tissue. Shadowing: No suspicious foci. Cyst: Ovoid 9 by 3 millimeter cyst 9 o'clock position 3 cm from the nipple. Solid lesions: None seen. Ductal dilation: None. LEFT BREAST: Mammography/Tomosynthesis: Masses/Architectural Distortion: None seen. Microcalcifictions: No suspicious pleomorphic-type are seen. Skin Thickening/Nipple Retraction: None. Left breast ultrasound: Echotexture: Normal appearance of the glandular tissue. Shadowing: No suspicious foci. Cyst: None. Solid lesions: None seen. Ductal dilation: None. IMPRESSION: 1. Right breast: No evidence of malignancy is noted. 2. Left breast: No evidence of malignancy is noted. 3. Bilateral six-month follow-up recommended. 4. The findings were discussed with the patient on the date of the examination. BI-RADS Category 3 - 6 month - Probably Benign Finding: Recommend follow-up mammography in 6 months Breast Density - Category B - Scattered areas of fibroglandular density A negative radiographic report should not delay biopsy if a dominant or clinically suspicious mass is present. Up to ten percent of cancers are not identified on mammography. A negative report may reinforce clinical impression. Adenosis and dense breasts may obscure an underlying neoplasm. False positive reports average 6 to 10%. Patient will receive a letter notifying them of these results.
== END ==
PROVIDERS: PCP Family Medicine; Visit Provider Family Medicine
DX: N60.11 Diffuse cystic mastopathy of right breast (principal); R92.323 Mammographic fibroglandular density, bilateral breasts
CPT/HCPCS: 76642; 77063; 77067

== ENCOUNTER → 2023-08-22 03:58 | Outpatient (CLI) | payer OTHER, SELFPAY ==
--- NOTE | 2023-08-22 07:15 | DI.MAMMO_ITS ---
Exam(s) US BREAST RT COMPLETE MG MAMMO DIAGNOSTIC BI EXAM: MG MAMMO DIAGNOSTIC BI CLINICAL HISTORY: f/u mammo, r92.8,z09, 6 mo f/u,bilat nodular densities. COMPARISON: MG MG MAMMO SCREEN CALL BACK BI from 02/17/2023 US US BREAST RT COMPLETE from 08/22/2023 TECHNIQUE: Craniocaudal and mediolateral oblique Full Field Digital Mammography views of both breast s with Computer Aided Diagnosis followed by Tomosynthesis . Spot compression views and right breast ultrasound also performed. FINDINGS: Mammography/Tomosynthesis: Right breast: Masses: Stable size and appearance of an ovoid area of nodularity in the central right breast. Architectural Distortion: None seen. Microcalcifications: No suspicious pleomorphic-type are seen. Skin Thickening/Nipple Retraction: None. Right breast US: Echotexture: Normal appearance of the glandular tissue. Shadowing: No suspicious foci. Cyst: 3 x 2 x 4 millimeter cyst in the 10 o'clock position 1-2 cm from the nipple. This does not cor respond to the mammographic nodule. Solid lesions: None seen. Ductal dilation: None. Left breast: Previously noted area of nodularity is not apparent on the current exam. No new or susp icious findings. IMPRESSION: 1. No evidence of malignancy is noted. 2. Unless there is more urgent need, follow-up screening mammography is recommended in 1 year. BI-RADS Category 2 - Benign Findings Breast Density - Category B - Scattered areas of fibroglandular density Breast density category C or D implies that the patient has dense breast tissue. Dense breast tissue is very common and is not abnormal but dense breast tissue can make it harder to find cancer on a ma mmogram. Also, dense breast tissue may increase their breast cancer risk. This information about the result of the mammogram report was provided to the patient to raise their awareness. Use this report when you speak with the patient about their risks for breast cancer, which includes their family hist ory. At that time, you may recommend for more screening tests (Ultrasound or MRI) as they might be us eful based on their risk. A negative radiographic report should not delay biopsy if a dominant or clinically suspicious mass is present. Up to ten percent of cancers are not identified on mammography. A negative report may reinforce clinical impression. Adenosis and dense breasts may obscure an underlying neoplasm. False positive reports average 6 to 10%. Patient will receive a letter notifying them of these results.
== END ==
PROVIDERS: PCP Family Medicine; Visit Provider Family Medicine
DX: Z09 Encounter for follow-up examination after completed treatment for conditions other than malignant neoplasm (principal); R92.8 Other abnormal and inconclusive findings on diagnostic imaging of breast
CPT/HCPCS: 76642; 77062; 77066; G0279

== ENCOUNTER 2024-03-25 11:30 | Outpatient (CLI) | payer OTHER, SELFPAY ==
[2024-03-25 12:41] LABS: Hemoglobin A1C 5.7 % (<5.7)
[2024-03-25 13:06] LABS: ALT 31 U/L (14-59); AST 25 U/L (15-37); Albumin 3.8 g/dL (3.4-5.0); Alkaline Phosphatase 90 U/L (46-116); Anion Gap 7.9 mmol/L (3-11); BUN 24 mg/dL (7-18); Bilirubin, Total 0.64 mg/dL (0.2-1.0); CO2 28.1 mmol/L (21.0-32.0); CREATININE 1.4 mg/dL (0.55-1.02); Calcium 9.8 mg/dL (8.5-10.1); Calculated LDL 144 mg/dL (<100); Chloride 102 mmol/L (98-107); Cholesterol 235 mg/dL (<200); Estimated GFR 41.49 (mL/min/1.73m2); Glucose 94 mg/dL (74-106); HDL Cholesterol 70 mg/dL (40-60); Potassium 4.1 mmol/L (3.5-5.1); Sodium 138 mmol/L (136-145); TSH (W/Ref FT4) 1.08 uIU/mL (0.36-3.74); Total Protein 7.8 g/dL (6.4-8.2); Triglyceride 109 mg/dL (<150); Vitamin B12 183 pg/mL (193-986)
[2024-03-25 17:53] LABS: CEA 0.6 ng/mL (See Note)
[2024-03-25 18:44] LABS: Hepatitis C Ab w Rflx HCV PCR Negative (Negative)
== END 2024-03-25 11:31 | disposition home or self-care (01) ==
LOC: LOS 11:30
PROVIDERS: PCP Family Medicine; Referring Provider Family Medicine; Visit Provider Family Medicine
DX: Z00.00 Encounter for general adult medical examination without abnormal findings (principal); E66.9 Obesity, unspecified; E03.9 Hypothyroidism, unspecified; E11.9 Type 2 diabetes mellitus without complications; I10 Essential (primary) hypertension; C20 Malignant neoplasm of rectum
CPT/HCPCS: 36415; 80053; 80061; 86803; 82378; 82607; 83036; 84443

== ENCOUNTER 2024-04-05 11:11 | Outpatient (CLI) | payer OTHER, SELFPAY ==
[2024-04-05 12:16] LABS: Abs Immature Grans 0.01 10^3/uL (0.0-0.06); Absolute Basophil Count 0.06 10^3/uL (0.0-0.2); Absolute Eosinophil Count 0.12 10^3/uL (0.0-0.7); Absolute Lymphocyte Count 1.89 10^3/uL (1.2-3.4); Absolute Monocyte Count 0.72 10^3/uL (0.1-0.8); Absolute Neutrophil Count 4.14 10^3/uL (1.2-6.7); Basophils % 0.9 %; Eosinophils % 1.7 %; HCT 41.3 % (36.0-46.0); HGB 13.8 g/dL (11.2-15.7); Immature Grans % 0.1 %; Lymphocytes % 27.2 %; MCH 28.9 pg (27.0-33.0); MCHC 33.4 % (32.0-36.0); MCV 87 fL (80-95); MPV 9.4 fL (8.0-11.0); Monocytes % 10.4 %; Neutrophils % 59.7 %; Platelet Count 294 10^3/uL (130-400); RBC 4.77 10^6/uL (3.93-5.22); RDW 12.3 % (11.7-14.6); RDW-SD 39.1 fL; WBC 6.94 10^3/uL (4.4-10.8)
== END 2024-04-05 11:12 | disposition home or self-care (01) ==
LOC: LOS 11:12
PROVIDERS: Nurse Practitioner Acute Care; PCP Family Medicine; Visit Provider Family Medicine
DX: E56.9 Vitamin deficiency, unspecified (principal); E34.9 Endocrine disorder, unspecified; E66.3 Overweight
CPT/HCPCS: 36415; 85025

== ENCOUNTER 2024-07-11 01:34 | Outpatient (CLI) | payer OTHER, SELFPAY ==
[2024-07-11 11:32] LABS: ALT 28 U/L (14-59); AST 20 U/L (15-37); Albumin 3.7 g/dL (3.4-5.0); Alkaline Phosphatase 92 U/L (46-116); Anion Gap 7.8 mmol/L (3-11); BUN 12 mg/dL (7-18); Bilirubin, Total 0.9 mg/dL (0.2-1.0); CO2 28.2 mmol/L (21.0-32.0); CREATININE 1.2 mg/dL (0.55-1.02); Calcium 10.1 mg/dL (8.5-10.1); Calculated LDL 53 mg/dL (<100); Chloride 101 mmol/L (98-107); Cholesterol 131 mg/dL (<200); Estimated GFR 49.92 (mL/min/1.73m2); Glucose 102 mg/dL (74-106); HDL Cholesterol 63 mg/dL (>or=50); Potassium 4.3 mmol/L (3.5-5.1); Sodium 137 mmol/L (136-145); Total Protein 7.4 g/dL (6.4-8.2); Triglyceride 79 mg/dL (<150); Vitamin B12 1977 pg/mL (193-986)
== END 2024-07-11 01:35 | disposition home or self-care (01) ==
PROVIDERS: PCP Family Medicine; Visit Provider Family Medicine
DX: E53.8 Deficiency of other specified B group vitamins (principal); I10 Essential (primary) hypertension
CPT/HCPCS: 36415; 80053; 80061; 82607

== ENCOUNTER → 2025-03-12 02:03 | Outpatient (CLI) | payer OTHER, SELFPAY ==
--- NOTE | 2025-03-12 06:30 | DI.MAMMO_ITS ---
Exam(s) MAMMO SCREENING EXAM: MAMMO SCREENING CLINICAL HISTORY: screening,Z12.39. TECHNIQUE: Bilateral full field digital CC and MLO mammographic images were obtained with 3D tomosynthesis and utilizing computer aided detection (CAD). COMPARISON: Prior mammograms were reviewed. Prior ultrasounds reviewed. FINDINGS: There are no new spiculated masses nor new malignant appearing microcalcification groups. There is no significant architectural distortion nor skin thickening-retraction. IMPRESSION: No radiographic evidence of malignancy. BI-RADS Category 1 - Negative Breast Density - Category B - There are scattered areas of fibroglandular density. Breast density Category C or D implies that the patient has dense breast tissue. Dense breast tissue can make it harder to find cancer on a mammogram. Dense breast tissue is also associated with an increased risk of breast cancer. This information about the result of the mammogram report was provided to the patient to raise their awareness. Use this report when you speak with the patient about their risks for breast cancer, which includes their family history. At that time, you may recommend additional screening tests (Ultrasound or MRI) as these tests may add significant information. A negative radiographic report should not delay biopsy if a dominant or clinically suspicious mass is present. Up to ten percent of cancers are not identified on mammography. A negative report may reinforce clinical impression. Adenosis and dense breasts may obscure an underlying neoplasm. False positive reports average 6 to 10%. Patient will receive a letter notifying them of these results.
== END ==
LOC: DI 02:04
PROVIDERS: PCP Family Medicine; Visit Provider Family Medicine
DX: Z12.31 Encounter for screening mammogram for malignant neoplasm of breast (principal)
CPT/HCPCS: 77063; 77067

== ENCOUNTER 2025-03-12 03:29 | Outpatient (CLI) | payer OTHER, SELFPAY ==
[2025-03-12 10:02] LABS: TSH (W/Ref FT4) 0.37 uIU/mL (0.55-4.78)
[2025-03-12 10:55] LABS: ALT 21 U/L (10-49); AST 22 U/L (<34); Albumin 4.3 g/dL (3.4-5.0); Alkaline Phosphatase 79 U/L (46-116); Anion Gap 6.3 mmol/L (3-11); BUN 19 mg/dL (9-23); Bilirubin, Total 0.70 mg/dL (0.2-1.2); CO2 28.7 mmol/L (20.0-31.0); Calcium 9.6 mg/dL (8.3-10.6); Chloride 102 mmol/L (98-107); Cholesterol 185 mg/dL (<200); Glucose 82 mg/dL (74-106); HDL Cholesterol 65 mg/dL (>40); Potassium 3.9 mmol/L (3.5-5.1); Sodium 137 mmol/L (136-145); Total Protein 7.2 g/dL (5.7-8.2)
[2025-03-12 11:22] LABS: Hemoglobin A1C 5.1 % (<5.7)
== END 2025-03-12 03:30 | disposition home or self-care (01) ==
LOC: LBO 03:29
PROVIDERS: PCP Family Medicine; Visit Provider Family Medicine
DX: E03.9 Hypothyroidism, unspecified (principal); I10 Essential (primary) hypertension; E11.9 Type 2 diabetes mellitus without complications
CPT/HCPCS: 36415; 80053; 80061; 83036; 84439; 84443